=== PATIENT | male | born 1985 | race Caucasian/White ===

== ENCOUNTER 2022-01-21 10:13 | Emergency (ER) | payer BC ==
[~2022-01-21] VITALS: Ht 175.3 cm; Wt 80.0 kg
[2022-01-21 12:49] LABS: BASOPHILS % 0.6 % (0.0-2.0); HEMATOCRIT. 42.8 % (42.0-52.0); HEMOGLOBIN. 14.6 g/dL (14.0-18.0); LYMPHOCYTES % 14.1 % (20.0-50.0); MEAN CORPUSCULAR HEMOGLOBIN 29.6 pg (28.0-32.0); MEAN CORPUSCULAR VOLUME 86.8 fL (80.0-94.0); MONOCYTES % 7.3 % (2.0-8.0); PLATELET 186 x1000/uL (130-400); RED BLOOD CELL COUNT 4.93 mill/uL (4.7-6.1); RED CELL DISTRIBUTION WIDTH 13.4 % (11.6-14.6)
[2022-01-21 12:55] LABS: CHLORIDE 105 mEq/L (98-107)
[2022-01-21] MEDS ORDERED: SODIUM CHLORIDE 0.9% 1,000 ML IV ONE (13:30)
[2022-01-21 17:51] VITALS: BP 121/81
== END 2022-01-21 17:54 | disposition home or self-care (01) ==
LOC: ER 10:13
DX: R55 Syncope and collapse (principal)
CPT/HCPCS: 36415; 71045; 80053; 83880; 84484; 85025; 93005; 96360; 96361; 99285; J7030